=== PATIENT | female | born 1990 | race Caucasian/White ===

== ENCOUNTER 2018-10-27 06:33 | Day surgery (SDC) | payer BC ==
[~2018-10-27 06:33] MED LIST: Clindamycin Phosphate in D5W 50 ML ONE; Clindamycin Phosphate in D5W 600 MG in Premix Bag 1 BAG IV ONE; Lactated Ringers 1,000 ML IV SCH; Sodium Chloride 0.9% 10 ML SDV IV PRN; Sodium Chloride 0.9% 10 ML Syringe FLUSH PRN; Sodium Chloride 0.9% 2.5 ML Syringe FLUSH PRN
[2018-10-27] MEDS ORDERED: Bupivacaine 0.5% 30 ML SDV ONE (07:20)
[2018-10-27] MEDS ORDERED: Propofol 200 MG/20 ML SDV ONE (07:26)
[2018-10-27] MEDS ORDERED: Midazolam 1 MG/ML 2 ML SDV ONE (07:26)
[2018-10-27] MEDS ORDERED: fentaNYL 250 MCG/5 ML SDV ONE (07:26)
[2018-10-27] MEDS ORDERED: Dexamethasone 4 MG/ML 5 ML MDV ONE (07:27)
[2018-10-27] MEDS ORDERED: Rocuronium 100 MG/10 ML Syringe ONE (07:27)
[2018-10-27] MEDS ORDERED: Ondansetron 4 MG/2 ML SDV ONE (07:27)
--- NOTE | 2018-10-27 07:45 | PCM.PREANE ---
Preanesthetic Assessment - Anesthesia/Transfusion/Family Hx Anesthesia History: Prior Anesthesia Reaction Other Type of Anesthesia Reaction Comment: anxious and crying when awakening Family History of Anesthesia Reaction: No Transfusion History: No Prior Transfusion(s) - Review of Systems General: No Symptoms Pulmonary: No Symptoms Cardiovascular: No Symptoms Gastrointestinal: No Symptoms Neurological: No Symptoms Other: Reports: None - Physical Assessment NPO Status Date: 10/26/18 O2 Sat by Pulse Oximetry: 97 Respiratory Rate: 14 Vital Signs: Last Vital Signs Temp 97.5 F 10/27/18 06:51 Pulse 65 10/27/18 06:51 Resp 14 10/27/18 06:51 BP 118/58 L 10/27/18 06:51 Pulse Ox 97 10/27/18 06:51 Height: 5 ft 3 in Weight: 81.193 kg ASA Class: 2 Mental Status: Alert & Oriented x3 Airway Class: Mallampati = 2 Dentition: Reports: Normal Dentition ROM/Head Extension: Full Lungs: Clear to Auscultation, Normal Respiratory Effort Cardiovascular: Regular Rate, Regular Rhythm - Lab Values: Laboratory Last Values Urine HCG, Qual NEGATIVE (NEGATIVE) 10/27/18 06:35 - Allergies Allergies/Adverse Reactions: Allergies Allergy/AdvReac Type Severity Reaction Status Date / Time penicillin G Allergy Hives Verified 10/22/18 09:13 - Blood Blood Available: No - Anesthesia Plan Pre-Op Medication Ordered: None - Acknowledgements Anesthesia Type Planned: General Anesthesia Pt an Appropriate Candidate for the Planned Anesthesia: Yes Alternatives and Risks of Anesthesia Discussed w Pt/Guardian: Yes Pt/Guardian Understands and Agrees with Anesthesia Plan: Yes Additional Comments: 3 months post plan GA/lma or TIVA with oral airway PreAnesthesia Questionnaire HEENT History: Reports: Other (See Below) Other HEENT History: wears glasses/contacts, has 1. upper left dental implant Cardiovascular History: Reports: High Cholesterol [employer]IST [employer] History: Reports: Other OB/BYN History: 3 months post- Other Neuro History: lumbar degenerative disc disease Endocrine/Metabolic History: Reports: Obesity/BMI 30+ - Past Surgical History Head Surgeries/Procedures: Reports: None HEENT Surgical History: Reports: Adenoidectomy, Tonsillectomy Female Surgical History: Reports: Breast Implant - SUBSTANCE USE Smoking Status *Q: Former Smoker Tobacco Use Within Last Twelve Months: No Recreational Drug Use History: No - HOME MEDS Home Medications: Home Meds Control Patch 1 patch TOP ASDIRECTED 10/22/18 [History] - CURRENT (IN HOUSE) MEDS Current Meds: Current Medications Lactated Ringer's (Ringers, Lactated) 1,000 mls @ 125 mls/hr IV ASDIRECTED JUNE Last Admin: 10/27/18 07:05 Dose: 125 mls/hr Sodium Chloride (Saline Flush) 10 ml FLUSH ASDIRECTED PRN PRN Reason: Keep Vein Open Sodium Chloride (Saline Flush) 2.5 ml FLUSH ASDIRECTED PRN PRN Reason: Keep Vein Open Sodium Chloride (Normal Saline) 10 ml IV ASDIRECTED PRN PRN Reason: IV Use Discontinued Medications Bupivacaine HCl (Marcaine 0.5%) Confirm Administered Dose 30 ml .ROUTE .STK-MED ONE Stop: 10/27/18 07:21 Dexamethasone (Dexamethasone) Confirm Administered Dose 20 mg .ROUTE .STK-MED ONE Stop: 10/27/18 07:28 Fentanyl (Sublimaze) Confirm Administered Dose 250 mcg .ROUTE .STK-MED ONE Stop: 10/27/18 07:27 Clindamycin Phosphate 600 mg/ (Premix) 50 mls @ 100 mls/hr IV ONETIME ONE Stop: 10/26/18 10:26 Clindamycin Phosphate (Cleocin In D5w) Confirm Administered Dose 50 mls @ as directed .ROUTE .STK-MED ONE Stop: 10/27/18 06:18 Midazolam HCl (Versed 1 Mg/Ml) Confirm Administered Dose 2 mg .ROUTE .STK-MED ONE Stop: 10/27/18 07:27 Ondansetron HCl (Zofran) Confirm Administered Dose 4 mg .ROUTE .STK-MED ONE Stop: 10/27/18 07:28 Propofol (Diprivan 20 Ml) Confirm Administered Dose 200 mg .ROUTE .STK-MED ONE Stop: 10/27/18 07:27 Rocuronium [place] (Zemuron) Confirm Administered Dose 100 mg .ROUTE .STK-MED ONE Stop: 10/27/18 07:28
--- NOTE | 2018-10-27 08:41 | PCM.OPNOTE ---
- General Post-Op/Procedure Note Date of Surgery/Procedure: 10/27/18 Operative Procedure(s): umbilical hernia repair Findings: umbilical hernia Pre Op Diagnosis: umbilical hernia Post-Op Diagnosis: same Anesthesia Technique: General LMA Primary Surgeon: Jacklyn Chambers Pathology: hernia sac Fluid Replacement, Intraop: 600 EBL in mLs: 5 Condition: Good
--- NOTE | 2018-10-27 09:53 | PCM.POSTAN ---
POST ANESTHESIA ASSESSMENT - MENTAL STATUS Mental Status: Alert, Oriented - VITAL SIGNS Vital Signs: Last Vital Signs Temp 98.2 F 10/27/18 09:05 Pulse 64 10/27/18 09:35 Resp 14 10/27/18 09:35 BP 128/74 10/27/18 09:35 Pulse Ox 99 10/27/18 09:35 - RESPIRATORY Respiratory Status: Respiratory Rate WNL, Airway Patent, O2 Saturation Stable - CARDIOVASCULAR CV Status: Pulse Rate WNL, Blood Pressure Stable - GASTROINTESTINAL GI Status: No Symptoms - POST OP HYDRATION Hydration Status: Adequate & Stable
--- NOTE | 2018-10-27 09:53 | PCM48HPAN ---
Post Anesthesia Note - EVALUATION WITHIN 48HRS OF ANESTHETIC Vital Signs in Normal Range: Yes Patient Participated in Evaluation: Yes Respiratory Function Stable: Yes Airway Patent: Yes Cardiovascular Function Stable: Yes Hydration Status Stable: Yes Pain Control Satisfactory: Yes Nausea and Vomiting Control Satisfactory: Yes Mental Status Recovered: Yes Vital Signs: Last Vital Signs Temp 98.2 F 10/27/18 09:05 Pulse 64 10/27/18 09:35 Resp 14 10/27/18 09:35 BP 128/74 10/27/18 09:35 Pulse Ox 99 10/27/18 09:35
--- NOTE | 2018-10-28 11:42 | OR ---
SURGEON: JACKLYN CHAMBERS MD DATE OF PROCEDURE: 10/27/2018 PREOPERATIVE DIAGNOSIS: Umbilical hernia. POSTOPERATIVE DIAGNOSIS: Umbilical hernia. PROCEDURE PERFORMED: Umbilical hernia repair. PRIMARY SURGEON: Jacklyn Chambers MD. ANESTHESIA: General LMA. FLUIDS: 600 mL of crystalloid. ESTIMATED BLOOD LOSS: 5 mL. FINDINGS: Umbilical hernia containing omentum. Fascial defect, 2 mm in size. COMPLICATIONS: None. INDICATIONS: The patient is a 28-year-old female, who presents with a symptomatic umbilical hernia. I explained the need for repair. I explained the procedure; expected perioperative course; and risks including bleeding, infection, or damage to surrounding structures. The patient verbalized understanding and wishes to proceed. PROCEDURE IN DETAIL: The patient was brought in the OR and placed on the OR table in supine position. A time-out was completed verifying the patient's name, age, date of , allergies, and procedure to be performed. A general LMA anesthesia was induced. The abdomen was prepped and draped in usual standard fashion. I anesthetized the supraumbilical fold with 0.5% Marcaine plain. A 15 blade was used to make an incision along the supraumbilical fold. Cautery was used to dissect down the level of subcutaneous fat. I immediately encountered a hernia sac. This was dissected out from the surrounding tissues using a combination of cautery and Metzenbaum scissors. I cleared away the tissue around the fascia. The patient had a very small defect measuring 2 mm in size. I opened up the hernia sac and tried to reduce the omentum back into the abdomen, but was unable to do so. Using cautery, I then transected the hernia sac and its contents at the level of fascia taking care to achieve hemostasis. The contents in the hernia sac were then passed off the field and sent to pathology. The small transected stalk was unable to be reduced back into the abdomen. The fascial defect was then closed with a [id number] Ethibond suture. The wound was then irrigated with normal saline. Hemostasis was achieved using cautery. The subcutaneous fat layer was closed with layers of interrupted 3-0 Vicryl sutures. The skin was closed with a running 4-0 Monocryl stitch. Steri-Strips and sterile dressings were applied. The patient tolerated the procedure well, was taken to PACU in stable condition. All counts were complete and correct at the end of the case. AMADA / THOMAS /[id number]
== END 2018-10-27 10:28 | disposition home or self-care (01) ==
LOC: MW.SDS 06:33
PROVIDERS: ATTEND Surgery
DX: K42.9 Umbilical hernia without obstruction or gangrene (principal); E78.00 Pure hypercholesterolemia, unspecified; M51.36 Other intervertebral disc degeneration, lumbar region; E66.9 Obesity, unspecified; Z68.31 Body mass index [BMI] 31.0-31.9, adult; Z88.0 Allergy status to penicillin; Z79.899 Other long term (current) drug therapy; Z87.891 Personal history of nicotine dependence
CPT/HCPCS: 49585; 81025; 88302; J1100; J2250; J2405; J2704; J3010; J3490; J7120; 00750